=== PATIENT | female | born 1990 | race American Indian/Alaskan Native ===

== ENCOUNTER 2020-09-17 23:13 | Emergency (ER) | payer SELFPAY ==
[2020-09-18] MEDS ORDERED: predniSONE 20 MG TAB PO ONE (01:21)
[2020-09-18] MEDS ORDERED: FAMOTIDINE 20 MG TAB PO ONE (01:21)
--- NOTE | 2020-09-18 01:25 | Emergency Department Report ---
ED Allergic Reaction HPI - General Stated complaint: ALLERGIC REACTION/FACIAL SWELLING/ ABD CRAMPS Time Seen by Provider: 09/18/20 01:20 - History of Present Illness Initial Comments: This is a 29-year-old female she presents to the ER complaining of allergic reaction. Patient states this morning she woke up with her face swollen and a rash on her neck chest and abdomen. She states that she ate chicken sandwich yesterday and that that was the last thing she ate before her symptoms began. Patient has a history of peanut allergy . she last took Benadryl at 10 PM with slight improvement. Patient is in no acute distress she complains of her throat being itchy skin itching she denies any chest pain or difficulty breathing no drooling or inability to swallow. MD Complaint: allergic reaction -: Sudden Exposure: food Symptoms: rash, itching, facial swelling (Eyelids swollen), other (Abdominal mild discomfort). denies: difficulty swallowing Treatment Prior to Arrival: benadryl Previous Allergy History: other (She is allergic to peanuts) - Related Data Home Medications Medication Instructions Recorded Confirmed Last Taken ALBUTEROL NEB's [Proventil 0.083%] 2.5 mg IH TID PRN 05/02/13 05/02/13 Unknown Albuterol Sulfate [Albuterol 0.63%] 0.63 mg IH TID PRN 05/02/13 05/02/13 Unknown EPINEPHrine (NF) [Epipen] 05/02/13 05/02/13 Unknown Previous Rx's Medication Instructions Recorded Last Taken Type Sulfamethoxazole/Trimethoprim 1 each PO BID #14 tablet 05/02/13 Unknown Rx [Bactrim DS] metroNIDAZOLE [Flagyl] 500 mg PO BID #14 tablet 05/02/13 Unknown Rx EPINEPHrine [Epipen] 0.3 mg IJ ONCE PRN #1 auto.injct 09/18/20 Unknown Rx Famotidine [Pepcid] 20 mg PO DAILY #3 tablet 09/18/20 Unknown Rx diphenhydrAMINE [Benadryl CAP] 25 mg PO Q6HR PRN #20 capsule 09/18/20 Unknown Rx predniSONE [Deltasone] 40 mg PO QDAY 6 Days #3 tab 09/18/20 Unknown Rx Allergies Allergy/AdvReac Type Severity Reaction Status Date / Time peanut Allergy Anaphylaxis Verified 05/02/13 03:31 ED Review of Systems ROS: Stated complaint: ALLERGIC REACTION/FACIAL SWELLING/ ABD CRAMPS Other details as noted in HPI Comment: All other systems reviewed and negative Constitutional: no symptoms reported. denies: chills, fever, malaise ENT: denies: ear pain, dental pain, hearing loss, epistaxis Cardiovascular: denies: chest pain, palpitations, dyspnea on exertion Endocrine: denies: no symptoms reported, excessive sweating, flushing Gastrointestinal: abdominal pain (Abdominal discomfort). denies: nausea, vomiting Genitourinary: denies: dysuria, frequency, hematuria Skin: rash, pruritus Neurological: denies: headache, weakness, paresthesias, confusion, abnormal gait, vertigo, other ED Past Medical Hx - Past Medical History Hx Asthma: Yes - Social History Smoking Status: Former Smoker Substance Use Type: None - Medications Home Medications: Home Medications Medication Instructions Recorded Confirmed Last Taken Type ALBUTEROL NEB's [Proventil 0.083%] 2.5 mg IH TID PRN 05/02/13 05/02/13 Unknown History Albuterol Sulfate [Albuterol 0.63%] 0.63 mg IH TID PRN 05/02/13 05/02/13 Unknown History EPINEPHrine (NF) [Epipen] 05/02/13 05/02/13 Unknown History Sulfamethoxazole/Trimethoprim 1 each PO BID #14 tablet 05/02/13 Unknown Rx [Bactrim DS] metroNIDAZOLE [Flagyl] 500 mg PO BID #14 tablet 05/02/13 Unknown Rx EPINEPHrine [Epipen] 0.3 mg IJ ONCE PRN #1 auto.injct 09/18/20 Unknown Rx Famotidine [Pepcid] 20 mg PO DAILY #3 tablet 09/18/20 Unknown Rx diphenhydrAMINE [Benadryl CAP] 25 mg PO Q6HR PRN #20 capsule 09/18/20 Unknown Rx predniSONE [Deltasone] 40 mg PO QDAY 6 Days #3 tab 09/18/20 Unknown Rx ED Physical Exam - General General appearance: alert, in no apparent distress - Head Head exam: Present: atraumatic - Eye Eye exam: Present: periorbital swelling - ENT ENT exam: Present: normal orophraynx, mucous membranes moist, other (No postpharyngeal swelling, no lip or tongue swelling) - Neck Neck exam: Present: normal inspection, lymphadenopathy - Respiratory Respiratory exam: Present: normal lung sounds bilaterally - Cardiovascular Cardiovascular Exam: Present: regular rate, normal heart sounds - Extremities Exam Extremities exam: Present: normal inspection - Back Exam Back exam: Present: normal inspection - Neurological Exam Neurological exam: Present: alert, oriented X3 - Psychiatric Psychiatric exam: Present: normal affect - Skin Skin exam: Present: warm, dry, intact, rash (She has whelps on her neck and chest), urticaria ED Medical Decision Making - Medical Decision Making 29-year-old female with a history of food allergies including peanut allergy . she presents to the emergency room with complaint of rash to her chest and abdomen. Eyes are swollen. itchy hives to her neck chest and abdomen after ingesting chicken sandwich. On examination she has no tongue swelling no lip cell swelling no postpharyngeal swelling no drooling tolerating fluids well. Patient is in no acute distress her respirations easy unlabored unlabored her lungs are clear. Patient given prednisone 60mg Benadryl 50 mg and Pepcid 20 mg. She will be discharged home with prednisone 40 mg daily x3 days as needed Benadryl and Pepcid daily. A refill for her EpiPen will be given and patient will be instructed to follow-up with her primary care doctor as needed or return to the emergency room for any worsening symptoms - Differential Diagnosis Allergic reaction hives Critical Care Time: No Critical care attestation.: If time is entered above; I have spent that time in minutes in the direct care of this critically ill patient, excluding procedure time. ED Disposition Clinical Impression: Allergic reaction Qualifiers: Encounter type: initial encounter Qualified Code(s): T78.40XA - Allergy, unspecified, initial encounter Disposition: DC-01 TO HOME OR SELFCARE Is pt being admited?: No Does the pt Need Aspirin: No Condition: Stable Instructions: Allergies, Adult, [id number], How to Use an Auto-Injector Pen Additional Instructions: Please take medication as prescribed. If you develop any worsening symptoms such as lip or tongue swelling or difficulty breathing return to the emergency room immediately otherwise follow-up with your primary care doctor. Please stay away from food that you are allergic to. Prescriptions: diphenhydrAMINE [Benadryl CAP] 25 mg PO Q6HR PRN #20 capsule PRN Reason: Itching predniSONE [Deltasone] 40 mg PO QDAY 6 Days #3 tab EPINEPHrine [Epipen] 0.3 mg IJ ONCE PRN #1 auto.injct PRN Reason: Allergic Reaction Famotidine [Pepcid] 20 mg PO DAILY #3 tablet Referrals: JL MORENO MD [Staff Physician] - 3-5 Days Time of Disposition: 01:36
[2020-09-18] MEDS: diphenhydrAMINE 25 MG CAP PO ONE ×2 (02:02→02:05)
[2020-09-18 02:10] VITALS: BP 116/68
== END 2020-09-18 02:10 | disposition home or self-care (01) ==
LOC: ED 23:13
DX: T78.49XA Other allergy, initial encounter (principal); J45.909 Unspecified asthma, uncomplicated; Z91.010 Allergy to peanuts; Z98.890 Other specified postprocedural states; Z79.899 Other long term (current) drug therapy; Z87.891 Personal history of nicotine dependence; X58.XXXA Exposure to other specified factors, initial encounter
CPT/HCPCS: 99282; J7512